=== PATIENT | female | born 1985 | race American Indian/Alaskan Native ===

== ENCOUNTER 2020-08-21 09:22 | Emergency (ER) | payer OTHER ==
[2020-08-21 09:28] VITALS: BP 133/77
[2020-08-21 09:54] LABS: Bacteria,Urine 2+ /HPF (Negative); Bilirubin,Urine NEG (Negative); Blood,Urine NEG (Negative); Color,Urine Yellow (Yellow); Mucus,Urine FEW /HPF; Protein,Urine <15 mg/dL mg/dL (Negative); Urobilinogen,Urine < 2.0 mg/dL (<2.0)
--- NOTE | 2020-08-21 10:31 | Event Note ---
ED Screening Note ED Screening Note: vaginal bleeding that began this morning has been spotting over the last week [employer]GER: Premier states she is 10 weeks no abd pain no fever no v/d no dysuria no abnormal discharge no PMHx allergy: ibuprofen LNMP 05/07/2020 /P:1/A:1 This initial assessment/diagnostic orders/clinical plan/treatment(s) is/are subject to change based on patients health status, clinical progression and re- assessment by fellow clinical providers in the ED. Further treatment and workup at subsequent clinical providers discretion. Patient/guardian urged not to elope from the ED as their condition may be serious if not clinically assessed and managed. Initial orders include: labs, UA, US
[2020-08-21 10:34] LABS: Basophils % (Auto) 0.6 % (0.0-1.8); Eosinophils # (Auto) 0.1 K/mm3 (0.0-0.4); Eosinophils % (Auto) 1.3 % (0.0-4.3); Hemoglobin 12.8 gm/dl (10.1-14.3); Lymphocytes # (Auto) 1.9 K/mm3 (1.2-5.4); Lymphocytes % (Auto) 27.9 % (13.4-35.0); Mean Corpuscular HGB Conc 35 % (30-34); Mean Corpuscular Volume 95 fl (79-97); Monocytes # (Auto) 0.5 K/mm3 (0.0-0.8); Monocytes % (Auto) 7.1 % (0.0-7.3); Platelet Count 274 K/mm3 (140-440); Red Blood Count 3.92 M/mm3 (3.65-5.03)
[2020-08-21 11:32] LABS: Blood Urea Nitrogen 7 mg/dL (7-17); Calcium 9.5 mg/dL (8.4-10.2); Hemolysis Index 28
[2020-08-21 12:04] LABS: BUN/Creatinine Ratio 12
--- NOTE | 2020-08-21 12:31 | Ultrasound Report ---
ULTRASOUND OBSTETRIC REASON FOR EXAM: , bleeding TECHNIQUE: Transabdominal and transvaginal ultrasound was performed to evaluate a first trimester pre gnancy. COMPARISON: None available. FINDINGS: FINDINGS: The pole, yolk sac, and gestational sac are normal in appearance. [place]-rump length: 5.1 cm This corresponds with a gestational age of 11 weeks 5 days. heart rate: 155-161 bpm Perigestational hemorrhage: There is perigestational hemorrhage involving less than half the circumfe rence of the gestational sac. MATERNAL FINDINGS: The uterus measures 13.9 x 7.9 x 9.9 cm. There is a 1.1 x 0.4 x 2.3 cm complex cystic area along the anterior lower uterine segment in the region of prior scar. Asymmetrically enlarged right ovary measures 9.3 x 7.9 x 9.9 cm. There is no discrete cystic or solid mass identified. Normal Doppler flow is visualized. The left ovary measures 2.5 x 4.7 x 2.4 cm and demonstrates a normal sonographic appearance. Cul-de-sac: There is no free fluid. IMPRESSION: 1. Viable intrauterine . Gestational age is 11 weeks 5 days by ultrasound. Recommend clinica l screening and ultrasound follow-up in the second trimester to screen for anomalies. 2. Enlarged right ovary, without discrete mass. Findings most likely reflect degenerative corpus lute um. Continued follow-up is recommended. 3. There is a small perigestational hemorrhage which may account for vaginal bleeding. 4. 1.1 cm complex cystic area along the anterior uterine segment region of prior scar. This may reflect postsurgical scarring. Continued attention on follow-up is recommended. Signer Name: Jayce Olson MD Signed: 08/21/2020 12:27 PM Workstation Name: [id number]
--- NOTE | 2020-08-21 13:39 | Emergency Department Report ---
ED HPI - General Chief complaint: Vaginal Bleeding Stated complaint: 10 WKS , VAGINAL BLEEDING Time Seen by Provider: 08/21/20 10:29 Source: patient Mode of arrival: Ambulatory Limitations: No Limitations - History of Present Illness Initial comments: The patient was evaluated in the emergency department for symptoms described in the history of present illness. He/she was evaluated in the context of the global COVID-19 pandemic, which necessitated consideration that the patient might be at risk for infection with the virus that causes COVID-19. Institutional protocols and algorithms that pertain to the evaluation of patients at risk for COVID-19 are in a state of rapid change based on information released by regulatory bodies including the CDC and federal and state organizations. These policies and algorithms were followed during the patient's care in the emergency department. Please note that these policies, procedures and recommendations changed on a rapid basis. 35-year-old -[place] female presents to the emergency room complaining of vaginal bleeding that started this morning. Patient reports that she is approximately 10 weeks and started having bleeding this morning. Patient states that she has had a panty liner of blood but no pad. She is 3 para 1 with last menstrual. May 07, 2020. Patient reports she is followed by [facility] Dr. Potts. Patient denies any abdominal or pelvic pain. MD Complaint: vaginal bleeding -: This morning Severity scale (0 -10): 0 Improves with: none Worsens with: none Associated symptoms: denies other symptoms Vaginal bleeding: light :: Yes Number of weeks : 10 OB History - Current : no complications Last menstrual period: 05/07/20 Pre- care: followed by OB, previous ultrasound confi - Related Data : 3 Para: 1 Allergies Allergy/AdvReac Type Severity Reaction Status Date / Time ibuprofen Allergy Swelling Verified 08/21/20 09:25 ED Review of Systems ROS: Stated complaint: 10 WKS , VAGINAL BLEEDING Other details as noted in HPI Comment: All other systems reviewed and negative ED Past Medical Hx - Past Medical History Previous Medical History?: No - Surgical History Past Surgical History?: No - Social History Smoking Status: Never Smoker ED Physical Exam - General Limitations: No Limitations General appearance: alert, in no apparent distress - Head Head exam: Present: atraumatic, normocephalic - Eye Eye exam: Present: normal appearance - ENT ENT exam: Present: mucous membranes moist - Respiratory Respiratory exam: Absent: accessory muscle use - Neurological Exam Neurological exam: Present: alert, oriented X3, normal gait - Psychiatric Psychiatric exam: Present: normal affect, normal mood - Skin Skin exam: Present: warm, dry, intact, normal color. Absent: rash ED Course Vital Signs 08/21/20 09:26 Temperature 98.0 F Pulse Rate 113 H Respiratory 18 Rate Blood Pressure 133/77 O2 Sat by Pulse 98 Oximetry ED Medical Decision Making - Lab Data Result diagrams: 08/21/20 09:48 08/21/20 10:34 Laboratory Tests 08/21/20 08/21/20 08/21/20 09:48 09:48 09:48 WBC 6.6 RBC 3.92 Hgb 12.8 Hct 37.0 MCV 95 MCH 33 H MCHC 35 H RDW 13.0 L Plt Count 274 Lymph % (Auto) 27.9 Mayes % (Auto) 7.1 Eos % (Auto) 1.3 Baso % (Auto) 0.6 Lymph # (Auto) 1.9 Mayes # (Auto) 0.5 Eos # (Auto) 0.1 Baso # (Auto) 0.0 Seg Neutrophils % 63.1 Seg Neutrophils # 4.2 Sodium Potassium Chloride Carbon Dioxide Anion Gap BUN Creatinine Estimated GFR BUN/Creatinine Ratio Glucose Calcium HCG, Qual Positive HCG, Quant Urine Color Urine Turbidity Urine pH Ur Specific [place] Urine Protein Urine Glucose (UA) Urine Ketones Urine Blood Urine Nitrite Urine Bilirubin Urine Urobilinogen Ur Leukocyte Esterase Urine WBC (Auto) Urine RBC (Auto) U Epithel Cells (Auto) Urine Bacteria (Auto) Urine Mucus Blood Type B POSITIVE 08/21/20 08/21/20 08/21/20 09:48 10:34 Unknown WBC RBC Hgb Hct MCV MCH MCHC RDW Plt Count Lymph % (Auto) Mayes % (Auto) Eos % (Auto) Baso % (Auto) Lymph # (Auto) Mayes # (Auto) Eos # (Auto) Baso # (Auto) Seg Neutrophils % Seg Neutrophils # Sodium 134 L Potassium 4.0 Chloride 101.6 Carbon Dioxide 22 Anion Gap 14 BUN 7 Creatinine 0.6 Estimated GFR > 60 BUN/Creatinine Ratio 12 Glucose 101 H Calcium 9.5 HCG, Qual HCG, Quant 61149 H Urine Color Yellow Urine Turbidity Cloudy Urine pH 6.0 Ur Specific [place] 1.015 Urine Protein <15 mg/dl Urine Glucose (UA) Neg Urine Ketones Neg Urine Blood Neg Urine Nitrite Neg Urine Bilirubin Neg Urine Urobilinogen < 2.0 Ur Leukocyte Esterase Tr Urine WBC (Auto) 2.0 Urine RBC (Auto) 3.0 U Epithel Cells (Auto) 20.0 H Urine Bacteria (Auto) 2+ Urine Mucus Few Blood Type - Radiology Data Radiology results: report reviewed Patient: RADHA SEYMOUR MR#: [id number] : 1985 Acct:[id number] Age/Sex: 35 / F ADM Date: 08/21/20 Loc: ED Attending Dr: Ordering Physician: ALICE COHEN Date of Service: 08/21/20 Procedure(s): US OB transvaginal Accession Number(s): [id number] cc: ALICE COHEN ULTRASOUND OBSTETRIC REASON FOR EXAM: , bleeding TECHNIQUE: Transabdominal and transvaginal ultrasound was performed to evaluate a first trimester . COMPARISON: None available. FINDINGS: FINDINGS: The pole, yolk sac, and gestational sac are normal in appearance. [place]-rump length: 5.1 cm This corresponds with a gestational age of 11 weeks 5 days. heart rate: 155-161 bpm Perigestational hemorrhage: There is perigestational hemorrhage involving less than half the circumference of the gestational sac. MATERNAL FINDINGS: The uterus measures 13.9 x 7.9 x 9.9 cm. There is a 1.1 x 0.4 x 2.3 cm complex cystic area along the anterior lower uterine segment in the region of prior scar. Asymmetrically enlarged right ovary measures 9.3 x 7.9 x 9.9 cm. There is no discrete cystic or solid mass identified. Normal Doppler flow is visualized. The left ovary measures 2.5 x 4.7 x 2.4 cm and demonstrates a normal sonographic appearance. Cul-de-sac: There is no free fluid. IMPRESSION: 1. Viable intrauterine . Gestational age is 11 weeks 5 days by ultrasound. Recommend clinical screening and ultrasound follow-up in the second trimester to screen for anomalies. 2. Enlarged right ovary, without discrete mass. Findings most likely reflect degenerative corpus luteum. Continued follow-up is recommended. 3. There is a small perigestational hemorrhage which may account for vaginal bleeding. 4. 1.1 cm complex cystic area along the anterior uterine segment region of prior scar. This may reflect postsurgical scarring. Continued attention on follow-up is recommended. Signer Name: Kimberley Olson MD Signed: 08/21/2020 12:27 PM Workstation Name: [id number] Transcribed By: KOKO Dictated By: KIMBERLEY OLSON MD Electronically Authenticated By: KIMBERLEY OLSON MD Signed Date/Time: 08/21/20 1227 DD/ 1202 TD/TT: - Medical Decision Making 35-year-old -[place] female presents to the emergency room complaining of vaginal bleeding that started this morning. Patient reports that she is approximately 10 weeks and started having bleeding this morning. Patient states that she has had a panty liner of blood but no pad. She is g ravida 3 para 1 with last menstrual. May 07, 2020. Patient reports she is followed by [facility] Dr. Potts. Patient denies any abdominal or pelvic pain. Lab work is stable ultrasound shows IUP of 11 weeks. Also shows cyst on both ovaries. It shows a perigestational hemorrhage. Recommend to follow-up with your PENAL OFFICER. Critical care attestation.: If time is entered above; I have spent that time in minutes in the direct care of this critically ill patient, excluding procedure time. ED Disposition Clinical Impression: Vaginal spotting Disposition: DC-01 TO HOME OR SELFCARE Is pt being admited?: No Does the pt Need Aspirin: No Condition: Stable Instructions: Vaginal Bleeding During , First Trimester Additional Instructions: Ultrasound is negative. Recommend following back up with Dr. Potts. Continue with all medications. Recommend pelvic rest which consist of no jumping no strenuous exercise no lifting heavy objects until you are cleared by your PENAL OFFICER. Referrals: PRIMARY CARE, [Primary Care Provider] - 3-5 Days SHAN POTTS MD [Staff Physician] - 3-5 Days Forms: Work/School Release Form(ED), Accompanied Note
== END 2020-08-21 13:55 | disposition home or self-care (01) ==
LOC: ED 09:22
DX: O26.851 Spotting complicating pregnancy, first trimester (principal); Z3A.10 10 weeks gestation of pregnancy
CPT/HCPCS: 36415; 76801; 76817; 80048; 81001; 84702; 84703; 85025; 86900; 86901